=== PATIENT | female | born 1940 | race Caucasian/White ===

== ENCOUNTER 2017-07-22 08:57 | Day surgery (SDC) | payer MEDICARE, OTHER ==
--- NOTE | 2017-07-22 11:18 | Operative Note ---
Upper GI Endoscopy Procedure date: 07/22/17 Date of : 36 Procedure:Upper GI Endoscopy Esophagogastroduodenoscopy with cold biopsies and hot snare polypectomy and Endo Clip placement Indications: Mrs. Arana is a 76-year-old female with chronic iron deficiency anemia. She requires parenteral iron replacement/ferriheme twice yearly. The patient had been seen by me previously for panendoscopy and did have this in July 2009. At that time she had a moderate sized hiatal hernia and gastric antral ulcer with erosive gastropathy. Her colonoscopy showed a diminutive sigmoid polyp. The patient has been followed by Dr. Dunia Back. Her hemoglobin has dropped some recently and was 9. She has not had any recent Hemoccult testing. She reports no melena or hematochezia. She reports no abdominal pain, dyspepsia, indigestion or dysphagia. She does have chronic reflux/gastroesophageal reflux disease and is taking omeprazole 20 mg by mouth twice a day. Performing Provider: Sandip Centeno MD Referring Provider: Dunia Back M.D./Lexie LINDA Sedation: Fentanyl 150 mg IV/Versed 7 mg IV Procedure: Prior to the procedure, a history and physical exam was performed, and patients medications and allergies were reviewed. The risks and benefits of the procedure and the sedation options and risks were discussed with the patient. All questions were answered and informed consent was obtained. The patient was brought to the procedure room. Patient identification and proposed procedure were verified by the physician and the nurse. The patient was placed in a left lateral decubitus position and the scope was passed under direct vision. Throughout the procedure, the patient's blood pressure, pulse, and oxygen saturations were monitored continuously. The endoscope was introduced through the mouth, and advanced to the second part of duodenum. The upper GI endoscopy was accomplished without difficulty. The patient tolerated the procedure well. Findings: The scope was passed directly into the upper esophagus and advanced to the third portion of the duodenum. The post bulbar duodenum and duodenal bulb were normal with normal mucosa and conniventes. Cold biopsies were taken from the post bulbar duodenum to rule out celiac disease. The scope was withdrawn through a normal duodenal bulb and pylorus into the stomach. There were a number of fundic gland polyps. There was mild linear reactive gastritis. Along the lesser curvature there were 2 larger slightly pedunculated polyps that were 12 and 15 mm and both of these polyps had surface ulceration. Both of these polyps were removed via snare cautery and there was some heme at the cautery site so both post-polypectomy sites were clipped with an Endo Clip to provide full hemostasis. Upon retroflexion there was a 6 cm hiatal hernia. There were no Luis Alberto's erosions. There were a few smaller fundic gland polyps along the greater curvature. 2 biopsies were taken in the antrum and along the lesser curvature for histology. The scope was then withdrawn into the esophagus. There was no evidence of Dowell's esophagus. There was some presbyesophagus. There was no reflux esophagitis. The remainder of the esophageal mucosa was normal. Immediate complications: None EBL (ml): 0 Impression: 1. 2 larger gastric polyps along lesser curvature and proximal body of stomach with surface ulceration status post snare removal and Endo Clip placement 2. Moderate sized 6 cm hiatal hernia 3. Gastric fundic gland polyps 4. Presbyesophagus 5. Mild linear reactive antritis Recommendations: I do feel that the patient's iron deficiency may be reviewed the result of bleeding from these large polyps that had surface ulceration. I did remove both of these. I will follow up the histology. I would recommend Hemoccult testing. If the patient is clearly strongly Hemoccult-positive, I would also repeat colonoscopy. I am going to add misoprostal to the patient's regimen. at 1118
[2017-07-22 14:55] VITALS: BP 112/69
== END 2017-07-22 12:14 | disposition home or self-care (01) ==
LOC: SDC 08:57
PROVIDERS: Internal Medicine Gastroenterology
PROC: 0DB68ZX Excision of Stomach, Via Natural or Artificial Opening Endoscopic, Diagnostic (ICD-10-PCS; 2017-07-22)
PROC: 0DB78ZX Excision of Stomach, Pylorus, Via Natural or Artificial Opening Endoscopic, Diagnostic (ICD-10-PCS; 2017-07-22)
PROC: 0DB98ZX Excision of Duodenum, Via Natural or Artificial Opening Endoscopic, Diagnostic (ICD-10-PCS; principal; 2017-07-22 10:00)
DX: K31.7 Polyp of stomach and duodenum (principal); K44.9 Diaphragmatic hernia without obstruction or gangrene; K22.8 Other specified diseases of esophagus; K29.60 Other gastritis without bleeding; D50.9 Iron deficiency anemia, unspecified

== ENCOUNTER → 2017-07-25 | Outpatient (CLI) | payer MEDICARE, OTHER ==
[2017-07-25 17:36] LABS: STOOL OCCULT BLOOD POSITIVE (NEG)
== END ==
LOC: CARL-LAB 10:36
PROVIDERS: Internal Medicine Gastroenterology
DX: D50.9 Iron deficiency anemia, unspecified (principal)
CPT/HCPCS: G0328

== ENCOUNTER → 2017-07-26 | Outpatient (CLI) | payer MEDICARE, OTHER ==
[2017-07-26 17:25] LABS: STOOL OCCULT BLOOD NEGATIVE (NEG)
== END ==
LOC: CARL-LAB 11:11
PROVIDERS: Internal Medicine Gastroenterology
DX: D50.9 Iron deficiency anemia, unspecified (principal)
CPT/HCPCS: G0328

== ENCOUNTER → 2017-07-27 | Outpatient (CLI) | payer MEDICARE, OTHER ==
[2017-07-27 19:42] LABS: STOOL OCCULT BLOOD POSITIVE (NEG)
== END ==
LOC: CARL-LAB 11:13
PROVIDERS: Internal Medicine Gastroenterology
DX: D50.9 Iron deficiency anemia, unspecified (principal)
CPT/HCPCS: G0328

== ENCOUNTER 2017-08-08 11:57 | Day surgery (SDC) | payer MEDICARE, OTHER ==
--- NOTE | 2017-08-08 13:33 | Operative Note ---
Colonoscopy ([facility]) Procedure date: 08/08/17 Date of : 36 Procedure:Colonoscopy Colonoscopy with cold snare polypectomy Indications: Mrs. Arana is a 76-year-old female who is here for diagnostic colonoscopy secondary to iron deficiency anemia. She did have an EGD on July 22, 2017 and had 2 large gastric polyps with surface ulceration that were removed via snare polypectomy. It was felt that these larger gastric polyps may be the source of the iron deficiency anemia. The patient did have a colonoscopy with Dr. Doug Dunn 6 years ago at which time she had a small polyp removed. The patient reports no abdominal pain, weight loss, change in her bowel habits or rectal bleeding. She reports no family history of colon cancer. Performing Provider: Sandip Centeno MD Referrring Provider: Dunia Back M.D./Lexie LINDA Sedation: Fentanyl 150 mg IV/Versed 7 mg IV Procedure: Prior to the procedure, a history and physical exam was performed, and patient medications and allergies were reviewed. The risks and benefits of the procedure and the sedation options and risks were discussed with the patient. All questions were answered and informed consent was obtained. Patient identification and proposed procedure were verified by the physician and the nurse. The patient was placed in a left lateral decubitus position. Throughout the procedure, the patient's blood pressure, pulse, and oxygen saturations were monitored continuously. Findings: On digital rectal examination there was normal rectal tone. There were no external hemorrhoids. The colonoscope was introduced through the anal canal to the rectum and advanced to the cecum. The ileocecal valve and appendiceal orifice were identified. The scope was advanced a short distance into the ileum which appeared grossly normal. The scope was then withdrawn into the colon. There was a larger 14-15 mm polyp in the ascending colon and 3 additional average 5 mm polyps in the descending and sigmoid colon. All of these were removed via cold snare polypectomy and retrieved. There were scattered diverticuli throughout the descending and sigmoid colon (LEFT colon). The rectum itself was normal. Upon retroflexion within the rectum there were grade 1 internal hemorrhoids. Impressions: 1. Larger 15 mm ascending polyp 2. 3 additional diminutive (5 mm) descending/sigmoid polyps 3. Left-sided diverticulosis 4. Grade 1 internal hemorrhoids Recommendations: There was no clear source for the patient's anemia/iron deficiency. I suspect that the ulcerated gastric polyps were the etiology. I would recommend Hemoccult testing. The patient is strongly Hemoccult-positive, I would consider video capsule enteroscopy. I will follow up the polyp pathology and recommend repeat colonoscopy again in 1 -3 years based upon the polyp histology. I do feel that the ascending colon polyp was possibly an advanced adenoma. I would encourage fiber supplementation on a long-term daily maintenance basis. Complications: None EBL (ml): 0 at 9104
[2017-08-08 16:16] VITALS: BP 136/74
== END 2017-08-08 14:40 | disposition home or self-care (01) ==
LOC: SDC 11:57
PROVIDERS: Internal Medicine Gastroenterology
PROC: 0DBN8ZX Excision of Sigmoid Colon, Via Natural or Artificial Opening Endoscopic, Diagnostic (ICD-10-PCS; 2017-08-08)
PROC: 0DBM8ZX Excision of Descending Colon, Via Natural or Artificial Opening Endoscopic, Diagnostic (ICD-10-PCS; 2017-08-08)
PROC: 0DBK8ZX Excision of Ascending Colon, Via Natural or Artificial Opening Endoscopic, Diagnostic (ICD-10-PCS; principal; 2017-08-08 13:00)
DX: D50.9 Iron deficiency anemia, unspecified (principal); Z86.010 Personal history of colon polyps; D12.4 Benign neoplasm of descending colon; D12.2 Benign neoplasm of ascending colon; K57.30 Diverticulosis of large intestine without perforation or abscess without bleeding; K64.0 First degree hemorrhoids